=== PATIENT | male | born 1980 | race Caucasian/White ===

== ENCOUNTER 2018-03-24 06:22 | Day surgery (SDC) | payer OTHER ==
[2018-03-23 11:08] VITALS: BMI 30.7
[2018-03-24] MEDS ORDERED: oxyCODONE HCL 10 MG SUSTAINED ACTING TABLET PO STA (06:52)
[2018-03-24] MEDS ORDERED: LIDOCAINE 1%/EPI 1:100000 (20 ML MULTI DOSE VIAL) ONE (07:02)
[2018-03-24] MEDS ORDERED: THROMBIN (BOVINE) 5,000 UNIT VIAL TP ONE ×2 (07:10→10:53)
[2018-03-24] MEDS ORDERED: ROCURONIUM BROMIDE 50 MG/5 ML VIAL ONE (07:19)
[2018-03-24] MEDS ORDERED: PROPOFOL 20 ML ONE ×8 (07:19→09:43)
[2018-03-24] MEDS ORDERED: fentaNYL CITRATE 250 MCG/5 ML VIAL ONE (07:19)
[2018-03-24] MEDS ORDERED: SUCCINYLCHOLINE CHLORIDE 200 MG/10 ML VIAL ONE (07:19)
[2018-03-24] MEDS ORDERED: ONDANSETRON 4 MG/2 ML VIAL ONE (07:20)
[2018-03-24] MEDS ORDERED: LIDOCAINE HCL/PF 2% SDV 5ML VIAL ONE (07:20)
[2018-03-24] MEDS ORDERED: DEXAMETHASONE SOD PHOSPHATE 4 MG/1 ML VIAL ONE (07:20)
[2018-03-24] MEDS ORDERED: MIDAZOLAM HCL 2 MG/2 ML SINGLE DOSE VIAL ONE ×3 (07:20→08:04)
--- NOTE | 2018-03-24 07:34 | HP ---
History & Physical Update - History History: No Change - Physical Physical: No Change - Assessment Assessment: No Change - Plan Plan: No Change Currently as noted:: Initial H&P is in patient's paper chart. C/o right neck/ RUE numb/weak/pain
[2018-03-24] MEDS ORDERED: DEXAMETHASONE SOD PHOSPHATE/PF 10 MG/ML SDV ONE (07:57)
[2018-03-24] MEDS ORDERED: BUPIVACAINE HCL/PF (5 MG/ML) 30 ML VIAL IJ ONE (07:58)
[2018-03-24] MEDS ORDERED: ceFAZolin SODIUM 1 GM VIAL ONE (08:57)
[2018-03-24] MEDS ORDERED: LIDOCAINE 1%/EPI 1:100000 (50 ML MULTI DOSE VIAL) INF ONE (09:20)
[2018-03-24] MEDS ORDERED: ONDANSETRON 4 MG/2 ML VIAL IVPUSH PRN ×2 (09:41→11:03)
[2018-03-24] MEDS ORDERED: oxyCODONE HCL 5 MG TABLET PO PRN ×3 (09:41→11:03)
[2018-03-24] MEDS ORDERED: LACTATED RINGERS SOLUTION 1,000 ML IV SCH ×3 (09:45→15:45)
[2018-03-24] MEDS ORDERED: GELATIN SPONGE,ABSORBABLE 1 GM PACKET TP ONE (10:53)
--- NOTE | 2018-03-24 11:01 | OP ---
Operative Note - Note: Operative Date: 03/24/18 Pre-Operative Diagnosis: C6/7 disc herniation, radiculopathy Operation: ACDF C6/7, neuromonitoring Post-Operative Diagnosis: Same as Pre-op Surgeon: Kali Monte Plumber'S Assistant: Mahesh Keita Anesthesiologist/AGRICULTURAL SERVICES DIRECTOR: Ginny Espinoza (Cervical block) Anesthesia: General Specimens Removed: C6/7 disc Estimated Blood Loss (mls): 5 Fluid Volume Replaced (mls): 600 Operative Report Dictated: Yes
--- NOTE | 2018-03-24 11:02 | SURG ---
Surgery Connie Cleaner Note Connie Cleaner: Mahesh Keita PA-C Date of Service: 03/24/18 Diagnosis: C6/7 disc herniation, radiculopathy Procedure: Anterior cervical discectomy fusion C6/7, neuromonitoring I was present for the entirety of the operative procedure. For further detail, please refer to operative report. Visit type - Case Type Case Type: Scheduled - New patient This patient is new to me today: Yes Date on this admission: 03/24/18
[2018-03-24] MEDS ORDERED: oxyCODONE HCL 5 MG TABLET ONE (12:15)
--- NOTE | 2018-03-24 13:25 | OP ---
DATE OF OPERATION: 03/24/2018 PREOPERATIVE DIAGNOSIS: Cervical stenosis, C6-7. POSTOPERATIVE DIAGNOSIS: Cervical stenosis, C6-7. PROCEDURE PERFORMED: Anterior cervical diskectomy and fusion, C6-7; placement of instrumentation, C6-7. SURGEON: Kali Monte MD COMPLETION MANAGER: EDWIGE Klein ESTIMATED BLOOD LOSS: 50 mL. IV FLUIDS: Per Anesthesia. ANESTHESIA: General. COMPLICATIONS: None. DISPOSITION: Patient brought to the PACU in stable condition. INDICATION FOR SURGERY: The patient is a 37-year-old gentleman who has been suffering from pain from his neck down into his right arm. X-rays and MRI were completed which note that he had a herniated disk at C6-7. He had gone through an exhaustive course of treatments which included medications, physical therapy as well as injections. Unfortunately his pain continued to persist in spite of all this. At this point risks, benefits and alternatives were discussed and the patient consented to surgery. OPERATIVE NOTE: Patient brought to the operating room by Anesthesia. After appropriate patient identification performed general anesthesia was administered. appropriate anesthetic lines were placed. SCDs were placed. Neural monitoring leads were attached. The patient was placed supine on the OR bed with arms tucked in to the side. All areas of bony prominence were well padded at this time. A needle was taped on to his neck to alondra off the C6-7 level. An x-ray was taken to confirm this was correct. Needle was removed and 10 mL of lidocaine with epinephrine was injected into his neck at this time. His neck was prepped and draped in the usual sterile manner. At this point timeout was completed. An incision was made on the left side of his neck. Dissection was carried down to the platysma. The platysma was cut in line with the skin incision. Next an interval between the sternocleidomastoid and strap muscles was developed. Next an interval between the carotid sheath and tracheal esophagus was developed. A needle was placed into the C6-7 disk and x-ray was taken to confirm this was correct. Needle was removed and longus colli muscles elevated off. Retractor blades were placed in and the microscope was brought in. At this point Howie pins were placed into the body of C6 and C7. A knife was used to incise the disk and disk traction was applied. A Jasso was used to elevate the disk off the endplates. Using a series of pituitaries, Kerrisons and curets a diskectomy was completed. Endplates were decorticated at this time. A size 8 cage filled with bone graft was placed in. A screw was placed into the body of C6. A screw was placed into the body of C7. [place] pins were removed. AP and lateral x-rays confirmed the instrumentation remained in good position. Final tightening was performed. The platysma was closed with 2-0 Vicryl suture. Skin was closed with 3-0 Monocryl suture. Dermabond was applied. Steri-Strips were applied. A sterile dressing was applied. Patient was placed supine on the OR bed, extubated in the OR and brought to the PACU in stable condition. Yonatan AUGUSTINE/[id number]
[2018-03-24] MEDS ORDERED: CEFAZOLIN 1 GM/D5W 1 GM/50 ML BAG IVPB SCH (17:00)
[2018-03-24 22:27] VITALS: TEMP 98.1
--- NOTE | 2018-03-25 07:00 | DS ---
Physical Exam: SUBJECTIVE: Patient seen and examined. C/o mild discomfort with swallowing (to be expected). Ambulating. Wearing soft cervical collar as instructed. Voiding spontaneously. States his RUE pain has diminished greatly...prior too surgery it was 8/10, currently it's 3/10. Tolerating PO diet. Denies n/v/f/c, CP, SOB, MCBRIDE, weakness. OBJECTIVE: Vital Signs Temperature 98.1 F 03/25/18 06:00 Pulse Rate 87 03/25/18 06:00 Respiratory Rate 17 03/25/18 06:00 Blood Pressure 117/58 03/25/18 06:00 O2 Sat by Pulse Oximetry (%) 100 03/25/18 06:33 PHYSICAL EXAM GENERAL: The patient is awake, alert, and fully oriented, in no acute distress. HEAD: Normal with no signs of trauma. EYES: PERRL, extraocular movements intact, sclera anicteric, conjunctiva clear. ENT: Ears normal, nares patent, oropharynx clear without exudates, moist mucous membranes. NECK: Trachea midline. incision c/d/i. no palpable hematoma LUNGS: cta bilat HEART: rrr EXTREMITIES: 2+ pulses, warm, well-perfused, no edema. NEUROLOGICAL: Cranial nerves II through XII grossly intact. Normal speech, gait not observed. PSYCH: Normal mood, normal affect. SKIN: Warm, dry, normal turgor, no rashes or lesions noted. LABS HOSPITAL COURSE: Date of Admission:03/24/18 Date of Discharge: 03/25/18 The patient was admitted to the Med-Surg Unit after an elective repair of their C6/7 disc herniation. Now, s/p C6/7 ACDF The day of surgery, the patient ambulated the hallways with assistance. Narcotic and non-narcotic pain management control was achieved with an oral and IV approach. POD #1, an xray was obtained and confirmed hardware placement at C6 /7, no fractures or dislocations. Анна-operative IV ABX were administered. DVT prophylaxis was achieved with SCDs and early ambulation. The patient ambulated with Physical Therapy and no services were recommended upon discharge. Narcotic scripts and or muscle relaxants were checked with [place] [employer] prior to escribe. The discharge instructions and an oral pain management plan were reviewed with the patient. All questions answered. Above plan discussed with Dr. Monte and agreed. Minutes to complete discharge: 15 Visit type - Case Type Case Type: Scheduled
[2018-03-25 08:17] VITALS: BP 134/82; PULSE 90
--- NOTE | 2018-03-28 17:14 | PATH ---
Surgical Pathology Report Patient Name: ARIADNE LEWIS [facility]. Rec. #: [id number] /Age/Gender: 1980 (Age: 37) / M Account: [id number] Location: [facility] AMBULATORY Taken: 03/24/2018 Received: 03/24/2018 Reported: 03/28/2018 Physicians: Kali Monte M.D. Specimen(s) Received CERVICAL DISC C6-7 Clinical History Cervical stenosis Final Diagnosis CERVICAL DISC C6-7: FRAGMENTS OF CARTILAGINOUS TISSUE AND BONE WITH DEGENERATIVE CHANGE. Electronically Signed Nahid Edwards M.D. Gross Description Received in formalin labeled "cervical disc C6-7," is a 3.0 x 2.3 x 0.3 cm aggregate of strauss fragments of fibrocartilaginous tissue. A claim representative portion is submitted in one cassette. 03/25/2018 saudi03/25/2018
== END 2018-03-25 09:07 | disposition home or self-care (01) ==
LOC: FASU 06:22 → FM/S 16:19 → FASU 03-25 09:07
PROVIDERS: ATTEND Orthopaedic Surgery Orthopaedic Surgery of the Spine
PROC: 0RG10A0 Fusion of Cervical Vertebral Joint with Interbody Fusion Device, Anterior Approach, Anterior Column, Open Approach (ICD-10-PCS; 2018-03-24)
PROC: 0RG10K0 Fusion of Cervical Vertebral Joint with Nonautologous Tissue Substitute, Anterior Approach, Anterior Column, Open Approach (ICD-10-PCS; 2018-03-24)
PROC: 0RB30ZZ Excision of Cervical Vertebral Disc, Open Approach (ICD-10-PCS; principal; 2018-03-24 08:35)
DX: M48.02 Spinal stenosis, cervical region (principal)
CPT/HCPCS: 72050-TC-FY; 88304-TC; 94010; 94760; 97116-GP; 97161-GP